=== PATIENT | male | born 1945 | race Caucasian/White ===

== ENCOUNTER → 2017-01-10 11:57 | Outpatient (CLI) | payer MEDICARE, BC ==
[2017-01-10 14:21] LABS: BASOPHILS 1.1 % (0-2); EOSINOPHILS 4.5 % (0-7); HEMATOCRIT 41.2 % (42.0-54.0); HEMOGLOBIN 13.9 g/dL (13.5-17.5); IMMATURE GRANULOCYTES 0.3 % (0-5); LYMPHOCYTES 25.7 % (15-50); MCH 33.6 pg (26.0-34.0); MCHC 33.7 g/dL (31.0-37.0); MCV 99.5 fL (80.0-100.0); MEAN PLATELET VOLUME 10.2 fL (7.4-10.4); MONOCYTES 13.1 % (2-11); NEUTROPHILS 55.3 % (40-80); PLATELET COUNT 207 10x3/uL (130-400); RBC 4.14 10x6/uL (4.20-6.10); RDW 13.9 % (11.5-14.5); WBC 3.6 10x3/uL (4.8-10.8)
[2017-01-10 14:39] LABS: ALBUMIN 3.5 g/dL (3.4-5.0); BILIRUBIN - TOTAL 0.39 mg/dL (0.2-1.3); CALCIUM 8.6 mg/dL (8.5-10.1); CARBON DIOXIDE 27.5 mmol/L (21.0-32.0); CREATININE - SERUM 1.1 mg/dL (0.6-1.3); POTASSIUM - SERUM 4.5 mmol/L (3.5-5.1); PROTEIN - SERUM 6.7 g/dL (6.4-8.2)
== END | disposition home or self-care (01) ==
LOC: D.LABREF 11:57
PROVIDERS: Student in an Organized Health Care Education/Training Program
DX: Z51.81 Encounter for therapeutic drug level monitoring (principal); Z79.2 Long term (current) use of antibiotics; M86.60 Other chronic osteomyelitis, unspecified site; R94.5 Abnormal results of liver function studies

== ENCOUNTER → 2017-01-16 10:23 | Outpatient (CLI) | payer MEDICARE, BC | END | disposition home or self-care (01) | LOC: D.LABREF 10:23 | DX: M86.60 Other chronic osteomyelitis, unspecified site (principal) ==